=== PATIENT | male | born 1955 | race Caucasian/White ===

== ENCOUNTER 2017-08-29 08:00 | Observation (INO) ==
--- OUTSIDE RECORDS SUMMARY | 2017-08-29 08:08 | External Medical Summary | Continuity of Care Document ---
:1955 Author Organization [facility] Care Team Providers Name Role Phone [employer] Unavailable Unavailable
[2017-08-29 08:19] VITALS: BMI 39.3
--- NOTE | 2017-08-29 10:18 | Cardiology History & Physical ---
History of Present Illness Chief complaint: PVCs HPI: Evin is a 62 year old male who is known to Dr. Segura 's practice with sustained long runs of bigeminy on recent Holter. He is asymptomatic, and being admitted for outpatient antiarrhythmic therapy on Flecainide. Review of Systems - Constitutional Constitutional: Absent: chills, fatigue, fever(s) - EENMT Eyes: Absent: change in vision Balance: Absent: vertigo Mouth/Throat: Absent: sore throat - Cardiovascular Cardiovascular: Absent: chest pain, palpitations, syncope, dyspnea on exertion, edema, heart murmur Vascular: Absent: pedal edema - Respiratory Respiratory: Absent: cough, dyspnea, dyspnea on exertion - Gastrointestinal Gastrointestinal: Absent: abdominal pain, constipation, diarrhea, nausea, vomiting - Genitourinary Genitourinary: Absent: dysuria - Integumentary/Breasts Integumentary: Absent: rash - Neurological Neurological: Absent: dizziness - Endocrine Endocrine: Absent: palpitations PFSH HTN Arrhythmia Surgical History: Vasectomy. hernia repair Family History: No known family history, patient adopted - Social History Smoking status: Former smoker second hand exposure: No Substance use type: does not use Alcohol intake frequency: does not drink Household members: spouse Current occupational status: retired Does patient use chewing tobacco?: No Current residence: Apartment/Private Home Medications Home Medications Medication Instructions Recorded Confirmed Type Lisinopril [Prinivil] 40 mg PO DAILY 07/20/17 08/29/17 History Chlorthalidone 25 mg PO DAILY 08/29/17 08/29/17 History Flecainide [Tambocor] 50 mg PO BID #30 tab 08/30/17 Rx Allergies Allergy/AdvReac Type Severity Reaction Status Date / Time No Known Allergies Allergy Verified 08/29/17 08:16 Exam Vital signs: Temperature 97.0 F 08/29/17 08:13 Pulse Rate 63 08/29/17 08:36 Respiratory Rate 22 08/29/17 08:13 Blood Pressure 118/72 08/29/17 08:13 Pulse Oximetry 98 08/29/17 08:13 - Constitutional no acute distress, well nourished, cooperative - Routine HEENT Exam Head: Present: normocephalic ENT: Present: mucous membranes moist - Routine Neck Exam Absent: JVD, carotid bruit - Routine Chest/Breast/Axilla Exam Chest wall: Absent: tenderness - Routine Respiratory Exam Absent: CTA bilaterally, rales, wheezes - Routine Cardiovascular Exam Present: no murmur, irregular rhythm - Routine Abdominal Exam Present: soft, normoactive bowel sounds - Routine Extremities Exam Present: no edema - Routine Skin Exam Present: intact, dry, warm - Routine Neurological Exam Present: alert, oriented X3 - Routine Psychiatric Exam Present: normal affect, normal thought process Results 08/29/17 08:34 08/30/17 04:04 Cardiac Enzymes 08/29/17 Range/Units 08:34 AST 36 (17-59) U/L CBC 08/29/17 Range/Units 08:34 WBC 9.1 (4.5-11.0) T/MM3 RBC 5.79 (4.50-5.90) M/MM3 Hgb 15.7 (13.5-17.5) GM/DL Hct 48.1 (41-53) % Plt Count 196 (130-400) T/MM3 Neut # (Auto) 6.3 (1.8-7.7) T/MM3 Lymph # (Auto) 1.9 (1-4.8) T/MM3 Hickman # (Auto) 0.5 (0-0.8) T/MM3 Eos # (Auto) 0.4 (0-0.5) T/MM3 Baso # (Auto) 0.0 (0-0.2) T/MM3 Comprehensive Metabolic Panel 08/29/17 Range/Units 08:34 Sodium 144 (134-144) MEQ/L Potassium 4.6 (3.6-5) MEQ/L Chloride 105 (98-107) MEQ/L Carbon Dioxide 27 (22-30) MEQ/L BUN 23.0 H (9-20) MG/DL Creatinine 1.0 (0.8-1.5) mg/dL Glucose 146 H (75-110) MG/DL Calcium 9.6 (8.4-10.2) MG/DL AST 36 (17-59) U/L ALT 29 (1-50) U/L Alkaline Phosphatase 121 (38-126) U/L Total Protein 7.9 (6.3-8.2) g/dL Albumin 4.2 (3.5-5.0) g/dL Intake and Output 08/28/17 08/29/1718 22:59 06:59 14:59 Intake Total 0 / 0 Output Total 325 / 325 Balance -325 / -325 Intake: Oral 0 / 0 Output: Urine 325 / 325 Other: Urine Appearance Clear Urine Color Yellow Urine Odor Normal Weight 289 lb 14.526 oz Patient Weight 08/30/17 06:59 Weight 289 lb 14.526 oz EKG interpretations - Dysrhythmias Sinus rhythms and dysrhythmias: sinus rhythm Hospital Course This is a general summary of the patient's hospital course. For more details refer to the complete medical record. Time spent with patient: 25 - 35 minutes Resuscitation Status: Full Code Assessment and Plan - Attestation Attestation Narrative: 08/31/17 14:26 Recommendation After examining the patient I agree with the above assessment. I am involved in the formulation of the patient's plan of care. - Assessment and Plan (1) Ventricular premature depolarization Status: Acute sustained long runs of bigeminy on recent Holter. He is asymptomatic, and being admitted for outpatient antiarrhythmic therapy on Flecainide. (2) Essential (primary) hypertension Status: Acute continue home Chlorthalidone and Lisinopril (3) Bradycardia Status: Acute Monitor cardiac telemetry for pauses. - No BB
[2017-08-29] MEDS: FLECAINIDE 50 MG TABLET PO SCH ×2 (10:19→20:16)
[2017-08-29 16:27] VITALS: RESP 16; O2SAT 96
[2017-08-30 07:29] VITALS: BP 128/67; TEMP 96.1
[2017-08-30] MEDS ORDERED: --POM--CHLORTHALIDONE 25 MG TABLET PO SCH (08:00)
[2017-08-30 08:29] VITALS: PULSE 53
[2017-08-30] MEDS: FLECAINIDE 50 MG TABLET PO SCH (08:45)
[2017-08-30] MEDS ORDERED: --POM--LISINOPRIL 40 MG TABLET PO SCH (09:00)
== END 2017-08-30 11:57 | disposition home or self-care (01) ==
LOC: SRG
PROVIDERS: ADMIT Internal Medicine Cardiovascular Disease; ATTEND Internal Medicine Cardiovascular Disease